=== PATIENT | female | born 1970 | race Caucasian/White ===

== ENCOUNTER 2022-01-23 11:22 | Outpatient (CLI) | payer OTHER, SELFPAY ==
[2022-01-23 14:02] LABS: Albumin* 4.7 g/dL (3.3-5.0); Chloride* 103 mmol/L (96-114)
[2022-01-23 14:03] LABS: Sodium* 139 mmol/L (135-149)
[2022-01-23 14:05] LABS: Aspartate Amino Transferase* 29 U/L (12-35); Bilirubin Total* 0.3 mg/dL (0.1-1.5); Blood Urea Nitrogen* 11 mg/dL (5-24); Carbon Dioxide* 28 mmol/L (20-32); Cholesterol* 211 mg/dL (90-199); Creatinine* 0.7 mg/dL (0.5-1.5); Estimated Glomerular Filt Rate 106 ml/min; Total Protein* 7.2 g/dL (6.0-8.3)
[2022-01-23 14:06] LABS: Alanine Aminotransferase* 25 U/L (4-35); Alkaline Phosphatase* 99 U/L (40-150); Calcium* 9.7 mg/dL (8.4-10.6); Glucose* 97 mg/dL (60-115); HDL Cholesterol* 54 mg/dL (>=50); LDL Cholesterol Calculated 134 mg/dL (<100); Triglycerides* 115 mg/dL (40-149)
== END 2022-01-23 11:23 | disposition home or self-care (01) ==
PROVIDERS: PCP Physician Assistant Medical; Visit Provider Physician Assistant Medical
DX: E78.5 Hyperlipidemia, unspecified (principal); R79.89 Other specified abnormal findings of blood chemistry
CPT/HCPCS: 80053; 80061

== ENCOUNTER 2022-03-20 09:59 | Outpatient (CLI) | payer OTHER, SELFPAY ==
--- NOTE | 2022-03-20 10:15 | CRLHL7_ITS ---
For Patients: As a result of the Century Cures Act, medical imaging exams and procedure reports are released immediately into your electronic medical record. You may view this report before your referring provider. If you have questions, please contact your health care provider. BILATERAL SCREENING MAMMOGRAM WITH COMPUTER-AIDED DETECTION AND TOMOSYNTHESIS TECHNIQUE: CC and MLO views were obtained. These mammographic images have been obtained using full-field digital technique. These mammographic images were interpreted with the benefit of computer-aided detection. Breast tomosynthesis was used in this interpretation. COMPARISON FILM: 02/28/21, 02/20/20, 02/17/19. FINDINGS: The breasts are heterogeneously dense, which may obscure small masses. IMPRESSION: There is no radiographic evidence for malignancy. ASSESSMENT: BI-RADS Category 2: Benign RECOMMENDATION: Routine screening mammogram in 1 year. A lay language report of this examination will be provided to the patient. MICKEY JOHNSON M.D. Diagnostic Radiologist [email or web address] Transcribed: 03/20/2022, 1:[address]/Dictated by: Mickey Johnson MD @ 03/20/2022 11:36:00 AM (Electronically Signed)
== END 2022-03-20 10:00 | disposition home or self-care (01) ==
PROVIDERS: PCP Physician Assistant Medical; Visit Provider Physician Assistant Medical
DX: Z12.31 Encounter for screening mammogram for malignant neoplasm of breast (principal); R92.2 Inconclusive mammogram
CPT/HCPCS: 77063; 77067

== ENCOUNTER 2023-07-05 11:17 | Outpatient (CLI) | payer OTHER, SELFPAY ==
--- NOTE | 2023-07-05 11:30 | MM_ITS ---
Patient: STEPHANIE HOLBROOK Facility:?[facility] [place] [facility] Patient ID:?[id number] Site Patient ID:?[id number]. Site :?[id number] Study:?XRay-Breast Bilateral 3D W/CAD-07/05/2023 11:54:26 AM Ordering Physician:YONG TAVAREZ Final Report: BILATERAL SCREENING MAMMOGRAM WITH COMPUTER-AIDED DETECTION AND TOMOSYNTHESIS TECHNIQUE: CC and MLO views were obtained. These mammographic images have been obtained using full-field digital technique. These mammographic images were interpreted with the benefit of computer-aided detection. Breast tomosynthesis was used in this interpretation. COMPARISON FILM: 03/20/22, 02/28/21, 02/20/20. FINDINGS: The breasts are heterogeneously dense, which may obscure small masses. IMPRESSION: There is no radiographic evidence for malignancy. ASSESSMENT: BI-RADS Category 1: Negative RECOMMENDATION: Routine screening mammogram in 1 year. A lay language report of this examination will be provided to the patient. ANJU JOHNSON M.D. Diagnostic Radiologist [email or web address] LORENA/[email or web address] D& Transcribed: 1:[address]/Dictated by: Anju Johnson MD @ 07/11/2023 12:20:00 PM Signed by:?Anju Johnson MD @07/11/2023 3:07:30 PM (Electronic Signature)
== END 2023-07-05 11:18 | disposition home or self-care (01) ==
LOC: MAMMO 11:18
PROVIDERS: PCP Physician Assistant Medical; Visit Provider Physician Assistant Medical
DX: Z12.31 Encounter for screening mammogram for malignant neoplasm of breast (principal); R92.2 Inconclusive mammogram
CPT/HCPCS: 77063; 77067

== ENCOUNTER 2024-06-10 07:37 | Outpatient (CLI) | payer OTHER, SELFPAY | END 2024-06-10 07:38 | disposition home or self-care (01) | PROVIDERS: PCP Physician Assistant Medical; Visit Provider Physician Assistant Medical | DX: E05.90 Thyrotoxicosis, unspecified without thyrotoxic crisis or storm (principal); E78.5 Hyperlipidemia, unspecified; R79.89 Other specified abnormal findings of blood chemistry | CPT/HCPCS: 80053; 80061; 82306; 82607; 82728 ==

== ENCOUNTER 2024-08-04 10:02 | Outpatient (CLI) | payer OTHER, SELFPAY ==
--- NOTE | 2024-08-04 10:15 | CRLHL7_ITS ---
For Patients: As a result of the Century Cures Act, medical imaging exams and procedure reports are released immediately into your electronic medical record. You may view this report before your referring provider. If you have questions, please contact your health care provider. INDICATION: BILATERAL SCREENING MAMMOGRAM, ASYMPTOMATIC 53 Y/O FEMALE COMPARISON: 07/05/23, 03/20/22, 02/28/21 TECHNIQUE: CC and MLO views were obtained. These mammographic images have been obtained using full-field digital technique. These mammographic images were interpreted with the benefit of computer aided detection and tomosynthesis. BREAST COMPOSITION: The breasts are heterogeneously dense, which may obscure small masses. FINDINGS: No suspicious findings. ASSESSMENT: BI-RADS 1 Negative RECOMMENDATION: Annual screening mammogram. A lay language report of this examination will be provided to the patient. Dictated by: Mickey Jones MD @ 08/11/2024 09:16:57 (Electronically Signed)
== END 2024-08-04 10:03 | disposition home or self-care (01) ==
LOC: MAMMO 10:03
PROVIDERS: PCP Physician Assistant Medical; Visit Provider Physician Assistant Medical
DX: Z12.31 Encounter for screening mammogram for malignant neoplasm of breast (principal); R92.333 Mammographic heterogeneous density, bilateral breasts
CPT/HCPCS: 77063; 77067